=== PATIENT | male | born 1955 | race Caucasian/White ===

== ENCOUNTER → 2016-09-25 | Outpatient (CLI) | payer OTHER | END | disposition home or self-care (01) | LOC: GMAJ 14:44 | PROVIDERS: ATTEND Family Medicine | DX: Z12.5 Encounter for screening for malignant neoplasm of prostate (principal) ==

== ENCOUNTER → 2017-10-09 | Outpatient (CLI) | payer OTHER | LOC: LAB 11:07 | PROVIDERS: ATTEND Family Medicine | DX: Z00.00 Encounter for general adult medical examination without abnormal findings (principal) ==

== ENCOUNTER → 2018-04-07 | Outpatient (CLI) | payer OTHER | LOC: GMAJ 14:32 | PROVIDERS: ATTEND Family Medicine | DX: R10.11 Right upper quadrant pain (principal) ==

== ENCOUNTER → 2018-04-10 | Outpatient (CLI) | payer OTHER ==
--- NOTE | 2018-04-10 16:17 | US ---
EXAM DESCRIPTION: Abdomen,Complete: Ultrasound. CLINICAL HISTORY: RUQ ABDOMEN PAIN RIGHT UPPER QUADRANT right kidney removed as a child. COMPARISON: None Available. TECHNIQUE: Transabdominal scannin-dimensional and Doppler modes. Technically difficult study due to patient body habitus. FINDINGS: Gallbladder: Normal size and echogenicity with no intraluminal stones or sludge. Normal wall thickness 2.7 mm. No fluid around the wall. Nontender with transducer pressure. Common bile duct: 5.7 mm normal caliber. Liver: Increased echogenicity. Long axis of the right lobe is 13.5 cm. Hepatopedal flow of the portal vein 1.1 cm diameter. Normal caliber of intrahepatic ducts. Smooth capsule with no ascites. Pancreas: Normal size and echogenicity with duct not seen.. Abdominal aorta: Normal caliber from the proximal to the distal bifurcation.. IVC: visualized; normal caliber. Spleen normal echogenicity; long axis measurement is 9.8 cm. Right kidney: No fluid or soft tissue mass in the right renal fossa. Left kidney: 11.8 x 7.4 x 7.2 cm. Normal cortical echogenicity and thickness. No echogenic stones or perinephric fluid. Mild hydronephrosis. IMPRESSION: 1. Technically difficult study due to patient body habitus. Fatty liver not enlarged. Normal vascularity and ducts. No ascites. 2. Normal gallbladder with no intraluminal stones or wall thickness. Normal caliber of the common bile duct. Pancreas is unremarkable. Negative findings in the spleen. 3. Mild hydronephrosis in the left kidney which is enlarged. Right nephrectomy approximately 50 years ago. Normal caliber of the abdominal aorta and IVC. Electronically signed by: David Vergara MD 04/10/2018 4:15 PM [employer]
== END ==
LOC: US 07:54
PROVIDERS: ATTEND Family Medicine
DX: R10.11 Right upper quadrant pain (principal); N13.30 Unspecified hydronephrosis

== ENCOUNTER → 2018-12-10 | Outpatient (CLI) | payer BC | LOC: GMAJ 10:47 | PROVIDERS: ATTEND Family Medicine | DX: Z12.5 Encounter for screening for malignant neoplasm of prostate (principal); I10 Essential (primary) hypertension; E78.00 Pure hypercholesterolemia, unspecified ==